=== PATIENT | male | born 1940 | race Caucasian/White ===

== ENCOUNTER 2017-09-06 10:07 | Outpatient (CLI) | payer MEDICARE ==
--- NOTE | 2017-09-06 11:35 | CT ---
HIGH RESOLUTION CHEST CT WITHOUT CONTRAST: COMPARISON: None. HISTORY: Chronic cough for years. Idiopathic pulmonary fibrosis. TECHNIQUE: A high-resolution chest CT was performed without contrast. This exam was performed in supine and pro ne positions. Thin slices were taken at large intervals. FINDINGS: No significant increased interstitial lung markings are seen. No peripheral honeycombing is present. There is mild bronchiectasis in the bilateral lower lobes. No pleural effusion or pneumothorax are seen. A small calcified granuloma is seen in the right lung base. The heart is normal in size. Calcifications are seen in the coronary arteries and the aorta. No obv ious hilar or mediastinal lymphadenopathy are appreciated. Degenerative changes are seen in the spine. The visualized subdiaphragmatic structures and chest wal l soft tissues are unremarkable. IMPRESSION: There is mild bronchiectasis without evidence of significant interstitial lung disease or idiopathic pulmonary fibrosis. POS: [facility]
== END 2017-09-06 10:08 | disposition home or self-care (01) ==
LOC: CT 10:07
PROVIDERS: ATTEND Internal Medicine Critical Care Medicine
DX: J84.112 Idiopathic pulmonary fibrosis (principal); J47.9 Bronchiectasis, uncomplicated
CPT/HCPCS: 71250

== ENCOUNTER 2017-09-17 17:46 | Inpatient (IN) | payer MEDICARE ==
[2017-09-17] MEDS ORDERED: Pantoprazole 40 MG VIAL ONE (19:11)
[2017-09-17 20:49] VITALS: BMI 18.6
[2017-09-17] MEDS ORDERED: Sodium Chloride 0.9% 1,000 ML IV SCH (21:30)
[2017-09-17] MEDS ORDERED: Ondansetron HCl/PF 4 MG/2 ML Vial IVP PRN (21:30)
[2017-09-18] MEDS ORDERED: Sodium Chloride 0.9% 100 ML ONE (00:15)
[2017-09-18] MEDS ORDERED: cefOXitin 2 GM VIAL ONE (00:15)
[2017-09-18] MEDS ORDERED: cefOXitin 2 GM in Sodium Chloride 0.9% 100 ML IVPB SCH (00:15)
--- NOTE | 2017-09-18 00:21 | HP ---
CHIEF COMPLAIN: Abdominal pain. HISTORY: Mr. Gonsalez is a 77-year-old man with abdominal pain since . He states that he bec jermaine distended and nauseated and also constipated. His last bowel movement was on Tuesday. He does not recall passing any gas since the onset of his symptoms. He has had some nausea and vomiting aft er trying to take oral contrast in [place], but his abdominal pain and nausea have both gotten bett er since the NG tube was placed. He states that currently he is not having any pain or nausea. He d enies any fevers or chills. He denies any previous similar symptoms. He is, otherwise, healthy. PAST MEDICAL HISTORY: None. PAST SURGICAL HISTORY: None except for tonsillectomy. SOCIAL HISTORY: He lives with his in [place]. He does not smoke, drink, or use illicit drugs . MEDICATIONS: He takes no outpatient medications. ALLERGIES: He has no known allergies. REVIEW OF SYSTEMS: Ten system review of systems is negative except per HPI. LABORATORY AND X-RAY FINDINGS: LFTs are unremarkable. BUN is slightly elevated at 34, alkaline phos phatase is elevated at 234. White count is slightly high at 15, hematocrit 47, platelets 443,000. H e does have a slight left shift. CT images are reviewed with our radiologist. The patient has a sma ll-bowel obstruction with a transition point at the level of a right femoral hernia. No other acute abnormalities seen. PHYSICAL EXAMINATION: VITAL SIGNS: Temperature 99, heart rate 109, respirations 16, 92% saturated on room air, blood press ure 144/80. GENERAL: Reveals a healthy-appearing older gentleman in no acute distress. He has an NG tube in [facility] with bilious drainage. NECK: Supple, without lymphadenopathy. HEART: Regular in its rate and rhythm without murmur, rubs, or gallops. LUNGS: Clear to auscultation bilaterally. ABDOMEN: Soft, nontender, slightly distended with diminished bowel sounds. EXTREMITIES: Warm and well perfused without edema. No palpable inguinal hernias, but the patient do es have a firm, tender femoral mass consistent with a femoral hernia. NEUROLOGIC: No focal deficits. PSYCHIATRIC: Alert, oriented, and appropriate. ASSESSMENT: Incarcerated obstructing right femoral hernia. I have recommended urgent repair in the operating room tonight. If the bowel looks like it is compromised, then a laparotomy may be necessar y and a bowel resection if damage to the bowel was confirmed. As the bowel appears viable, it will b e simply reduced back into the abdominal cavity. I will likely use a mesh plot to repair the hernia unless there is ischemic bowel, in which case primary repair will be done. The inherent risks of estee td were discussed with the patient. These include, but are not limited to bleeding, infection, ris ks of anesthesia, damage to nearby structures including bowel and blood vessels, recurrent hernia, an d need for further procedures. If bowel resection is performed, then anastomotic leak is also a pote ntial risk of surgery. I have placed the patient on the OR schedule and ordered antibiotics on-call to the OR. All of his questions were answered.
[2017-09-18] MEDS ORDERED: Fentanyl 100 MCG/2 ML VIAL ONE (00:25)
[2017-09-18] MEDS ORDERED: Fentanyl 250 MCG/5 ML VIAL ONE (00:49)
[2017-09-18] MEDS ORDERED: Bupivacaine/Epinephrine 0.25% 30 ML VIAL ONE (01:04)
[2017-09-18] MEDS ORDERED: HYDROmorphone 2 MG/ML VIAL SLOW IVP PRN (02:24)
[2017-09-18] MEDS ORDERED: Ondansetron HCl/PF 4 MG/2 ML Vial IVP PRN (02:24)
[2017-09-18] MEDS ORDERED: Promethazine HCl 25 MG/ML VIAL SLOW IVP PRN (02:24)
[2017-09-18] MEDS ORDERED: Promethazine HCl 25 MG/ML VIAL IM PRN (02:24)
[2017-09-18] MEDS ORDERED: Sodium Chloride 0.9% 500 ML IVPB SCH (02:30)
[2017-09-18] MEDS ORDERED: Ondansetron HCl/PF 4 MG/2 ML Vial SLOW IVP PRN (02:37)
[2017-09-18] MEDS: Sodium Chloride 0.9% 1,000 ML IV SCH ×4 (04:40→23:37)
[2017-09-18 05:27] LABS: Anion Gap 11 mmol/L (10-20); BUN (Urea Nitrogen) 34 mg/dL (8.4-25.7); Calc. Creatinine Clearance 65 mL/min (70-130); Carbon Dioxide 30 mmol/L (23-31); Chloride 100 mmol/L (98-107); Estimated GFR-MDRD Greater than 90; Glucose 123 mg/dL (83-110); Potassium 3.7 mmol/L (3.5-5.1); Sodium 137 mmol/L (136-145)
[2017-09-18] MEDS: cefOXitin 2 GM in Sodium Chloride 0.9% 100 ML IVPB SCH ×3 (05:33→17:50)
[2017-09-18] MEDS: Acetaminophen 1,000 MG in Premix Bag 1 BAG IVPB SCH ×4 (05:33→23:31)
[2017-09-18] MEDS ORDERED: Pantoprazole 40 MG VIAL IVP SCH (06:00)
[2017-09-18 06:32] LABS: Band 56 % (5-11); Hemoglobin 11.7 g/dL (14.0-18.0); Lymphocytes 14 % (21-51); MDiff Complete? YES; Mean Corpuscular Hemoglobin 33.7 pg (27.0-31.0); Mean Corpuscular Volume 99.2 fL (78.0-98.0); Mean Platelet Volume 7.8 fL (7.4-10.4); Metamyelocyte 1 % (0-0); Monocytes 3 % (0-10); Neutrophil 25 % (42-75); PLT Morphology Comment Appears Adequate; Platelet Count 271 thou/uL (130-400); RBC Distribution Width 12.9 % (11.5-14.5); Red Blood Cell (RBC) Count 3.46 mill/uL (4.70-6.10); Reflex for Review?? YES; White Blood Cell (WBC) Count 6.5 thou/uL (4.8-10.8)
[2017-09-18] MEDS: Pantoprazole 40 MG VIAL IVP SCH (08:52)
[2017-09-18] MEDS ORDERED: Glycopyrrolate 0.2 MG/ML 5 ML SYRINGE ONE (14:24)
[2017-09-18] MEDS ORDERED: PHENYLEPHRINE-NS 100 MCG/ML 10 ML SYRINGE ONE (14:24)
[2017-09-18] MEDS ORDERED: Succinylcholine Chloride 20 MG/ML 10 ml SYRINGE FS ONE (14:24)
[2017-09-18] MEDS ORDERED: PROPOFOL 200 MG/20 ML VIAL ONE (14:24)
[2017-09-18] MEDS ORDERED: Lidocaine 1% PF 5 ML VIAL ONE (14:24)
--- NOTE | 2017-09-18 15:50 | PDOC.GSPN ---
Surgery Progress Note: Subj - Subjective Narrative: Patient is feeling fine. He denies any nausea or abdominal pain. He has not passed any gas. Afebrile with normal vital signs. NG 250 bilious output. Sy catheter 350 impasse shift. White count is 6.5 and electrolytes are normal. BUN is slightly elevated at 34. His incisions are clean dry and intact. No evidence of recurrent hernia. Bowel sounds are hypoactive Assessment/plan: Doing well status post reduction and repair of incarcerated femoral hernia. Diagnostic laparoscopy revealed viable appearing small bowel loop previously incarcerated in the hernia. Await return of bowel function. Once he is passing flatus we will DC the NG tube and start him on clears. Surgery Progress Note: Obj - Vital signs Vital signs: Vital Signs - Most Recent Temp Pulse Resp BP Pulse Ox 97.5 F L 73 20 124/67 99 09/18/17 12:02 09/18/17 12:02 09/18/17 12:02 09/18/17 12:02 09/18/17 12:02 Surgery Progress Note: Results - Labs Result Diagrams: 09/18/17 04:46 09/18/17 04:46 Lab results: Laboratory Results - last 24 hr 09/18/17 09/18/17 04:46 04:46 WBC 6.5 RBC 3.46 L Hgb 11.7 L Hct 34.3 L MCV 99.2 H MCH 33.7 H MCHC 34.0 RDW 12.9 Plt Count 271 MPV 7.8 Neutrophils % (Manual) 25 L Band Neuts % (Manual) 56 H Lymphocytes % (Manual) 14 L Monocytes % (Manual) 3 Basophils % (Manual) 1 Metamyelocytes % (Man) 1 H Plt Morphology Comment Appears Adequate Sodium 137 Potassium 3.7 Chloride 100 Carbon Dioxide 30 Anion Gap 11 BUN 34 H Creatinine 0.82 Estimated GFR (MDRD) Greater than 90 Glucose 123 H Calcium 9.0
[2017-09-19] MEDS: Acetaminophen 1,000 MG in Premix Bag 1 BAG IVPB SCH (05:12)
[2017-09-19 07:11] LABS: Hemoglobin 11.7 g/dL (14.0-18.0); Mean Corpuscular HGB CONC 34.2 g/dL (32.0-36.0); Mean Corpuscular Hemoglobin 34.4 pg (27.0-31.0); Mean Platelet Volume 7.2 fL (7.4-10.4); Platelet Count 236 thou/uL (130-400); RBC Distribution Width 12.9 % (11.5-14.5); Red Blood Cell (RBC) Count 3.41 mill/uL (4.70-6.10); White Blood Cell (WBC) Count 4.8 thou/uL (4.8-10.8)
[2017-09-19 07:26] LABS: Anion Gap 14 mmol/L (10-20); BUN (Urea Nitrogen) 30 mg/dL (8.4-25.7); Calc. Creatinine Clearance 75 mL/min (70-130); Calcium 8.5 mg/dL (7.8-10.44); Carbon Dioxide 24 mmol/L (23-31); Chloride 105 mmol/L (98-107); Estimated GFR-MDRD Greater than 90; Glucose 69 mg/dL (83-110); Potassium 3.2 mmol/L (3.5-5.1); Sodium 140 mmol/L (136-145)
[2017-09-19] MEDS: Pantoprazole 40 MG VIAL IVP SCH (08:23)
[2017-09-19 08:31] LABS: Band 64 % (5-11); Eosinophils 3 % (0-10); Lymphocytes 16 % (21-51); MDiff Complete? YES; Metamyelocyte 6 % (0-0); Monocytes 4 % (0-10); Neutrophil 7 % (42-75); PLT Morphology Comment Appears Adequate; RBC Morphology Normal; Toxic Granulation SLIGHT
[2017-09-19] MEDS: Sodium Chloride 0.9% 1,000 ML IV SCH (09:25)
[2017-09-19 16:16] VITALS: BP 146/76; TEMP 97.3
--- NOTE | 2017-09-22 22:52 | PDOC.OP ---
Operative Note - Operative Note Operative Note: PROCEDURE: Repair of right femoral hernia and diagnostic laparoscopy. DATE OF PROCEDURE: 09/18/2017 SURGEON: Verna Burt M.D. PREOPERATIVE DIAGNOSES: Incarcerated right femoral hernia POSTOPERATIVE DIAGNOSIS: Incarcerated right femoral hernia HISTORY: Patient presented to the emergency room with abdominal pain, nausea and vomiting. He was found to have a high-grade small bowel obstruction with a transition point at a right femoral hernia. This was unable to be reduced at the bedside. Recommendation was made to proceed emergently to the operating room for repair of that hernia and possible bowel resection. PROCEDURE IN DETAIL: After informed consent was obtained and appropriate preoperative antibiotics administered, the patient was taken to the operating room and general anesthesia induced. He was prepped and draped in standard sterile fashion including the scrotum and thighs in the field. Local anesthesia was infused to the skin and subcutaneous tissues overlying the palpable hernia. Dissection was carried down to the hernia sac which was carefully incised. Slightly bloody fluid was encountered and suctioned out. A darkly discolored but not frankly necrotic loop of small intestine was identified. The hernia sac was excised. The neck of the hernia was very tight and this was incised superiorly to allow reduction of the bowel loop into the abdominal cavity. Due to concern of impaired viability of the small bowel loop and possible bacterial translocation the decision was made to repair the hernia without mesh. The neck of the hernia was closed with 2-0 Vicryl suture attaching the inguinal ligament to the muscular fascia and to the femoral sheath to close the defect. The subcutaneous tissues were closed with 3-0 Monocryl suture and the skin was closed with 4-0 subcuticular suture. Diagnostic laparoscopy was then performed to assess viability of the bowel. Local anesthesia was infused to the skin and subcutaneous tissues of the umbilicus. Dissection was carried down to the fascia which was incised transversely. 0 Vicryl suture was placed and the peritoneum entered under direct vision. A trocar was placed into the peritoneal cavity and carbon dioxide gas insufflated to an intra-abdominal pressure of 15. The laparoscope was advanced into the abdominal cavity and a dissecting trocar placed laterally after infusion of local anesthesia. The previously incarcerated bowel loop was readily visible. This was pink and viable in appearance. The bowel distal to the incarceration was already distending with gas in the proximal bowel was peristalsing. There was an area of the bowel just proximal to the incarcerated segment which was felt to be the portion of the bowel compressed in the neck of the hernia. This area appeared relatively narrowed compared to the dilated proximal bowel but was about the same caliber as the bowel distal to the incarcerated segment. This was not felt to represent a fixed stricture, and bowel contents were readily passing this area. By palpation it did not feel sclerotic or thickened. the abdominal cavity was irrigated easily to clear and the lateral trocar removed and hemostasis verified. Carbon dioxide gas was desufflated through the umbilical trocar which was then removed. The fascia was closed using the 0 Vicryl stay sutures with excellent result.Additional local anesthesia was infused for postoperative pain control and the incisions closed with 4-0 Monocryl subcuticular sutures. Dermabond dressings were placed and the patient was extubated and taken to recovery room in good condition. Estimated blood loss was minimal. There were no complications. Specimen is femoral hernia sac.
== END 2017-09-19 19:45 | disposition home or self-care (01) | DRG 352 ==
LOC: ERS 17:46 → SURG A 20:12
PROVIDERS: ADMIT Surgery; ATTEND Surgery
PROC: 0YQ70ZZ Repair Right Femoral Region, Open Approach (ICD-10-PCS; principal; 2017-09-18)
DX: K41.30 Unilateral femoral hernia, with obstruction, without gangrene, not specified as recurrent (principal); I10 Essential (primary) hypertension
CPT/HCPCS: 36415; 80048; 82274; 85025; 85060; 88302; 96374; A4216; C9113; J0131; J0694; J2001; J2704; J3010; J7050

== ENCOUNTER 2017-10-19 20:08 | Inpatient (IN) | payer MEDICARE ==
[2017-10-19] MEDS ORDERED: Ondansetron HCl/PF 4 MG/2 ML Vial SLOW IVP PRN (21:37)
[2017-10-19] MEDS ORDERED: Acetaminophen 1,000 MG in Premix Bag 1 BAG IVPB PRN (21:38)
[2017-10-19] MEDS ORDERED: Promethazine HCl 25 MG/ML VIAL SLOW IVP PRN (21:38)
[2017-10-19] MEDS ORDERED: Pantoprazole 40 MG VIAL IVP SCH (21:45)
[2017-10-19] MEDS: Sodium Chloride 0.9% 1,000 ML IV SCH (21:59)
[2017-10-19] MEDS ORDERED: Sodium Chloride 0.9% 1,000 ML IV SCH (23:45)
[2017-10-20] MEDS: Sodium Chloride 0.9% 1,000 ML IV SCH ×4 (02:40→17:05)
[2017-10-20] MEDS ORDERED: Sodium Chloride 0.9% 1,000 ML IV SCH (06:45)
[2017-10-20] MEDS: Pantoprazole 40 MG VIAL IVP SCH (08:23)
--- NOTE | 2017-10-20 09:37 | HP ---
DATE OF ADMISSION: 10/19/2017 HISTORY: Mr. Gonsalez is a 77-year-old man, who recently underwent repair of incarcerated right femor al hernia, which was obstructed. Laparoscopy was carried out at the time of the operation and the sunday wel loop, which had been incarcerated, appeared viable and there was no visible stricture. He initia lly did well. He had some problems with constipation, but no nausea or vomiting and no abdominal mary n. He developed fairly acute onset of abdominal pain yesterday followed quickly by nausea and vomiti ng, and it persisted today, so he came to the local emergency room where a CT scan showed a high-grad e small-bowel obstruction. An NG tube was placed and he is feeling much better. He denies any nause a and his pain is minimal. He has not had any fevers or chills and is otherwise feeling well. PAST MEDICAL HISTORY: None. PAST SURGICAL HISTORY: Tonsillectomy and repair of right femoral hernia with diagnostic laparoscopy. SOCIAL HISTORY: He does not smoke, drink, or use illicit drugs. MEDICATIONS: No outpatient medications. ALLERGIES: No allergies. REVIEW OF SYSTEMS: Ten-system review of systems is negative except per HPI. Lab work done in [facility] showed an elevated white count of 18,000 and a slightly elevated lactate. Other chemistries and LFTs were unremarkable. He had a significant increase in his hemoglobin by about 10 points and his B UN was elevated at 31, although his creatinine was normal. CT images were reviewed with radiologist, and I agree with the written report. He has a small-bowel obstruction with the terminal ileum decom pressed. It was difficult to identify the exact transition point. PHYSICAL EXAMINATION: VITAL SIGNS: Unremarkable. Blood pressure 98.2, heart rate 98, respirations 18, 96% saturated on ro om air, blood pressure 143/92. GENERAL: Reveals a thin elderly man, who appears younger than his stated age. He is not jaundiced o r icteric. He is not flushed or toxic in appearance. HEENT: Unremarkable. NECK: Supple, without lymphadenopathy or thyroid nodules. HEART: Regular in its rate and rhythm without murmurs, rubs, or gallops. LUNGS: Clear to auscultation bilaterally. ABDOMEN: Soft and nondistended. He has some minimal left lower quadrant tenderness to palpation wit hout rigidity, rebound, or guarding. Bowel sounds are diminished. EXTREMITIES: Warm and well perfused without edema. NEUROLOGIC: No focal deficits. PSYCHIATRIC: Alert, oriented, and appropriate. No bulge or tenderness in the groin or femoral or in guinal areas. ASSESSMENT: Small-bowel obstruction. This could be due to adhesions or to a delayed stricture from his small-bowel incarceration. He is comfortable with his NG tube, so we are going to try a brief pe riod of conservative management with NG tube, bowel decompression, and n.p.o. If he improves signifi cantly with this, we will get a contrast study. If there is not significant improvement, then he britt l likely proceed to the operating room for exploration and possible bowel resection. He and his are in agreement with the plan. All their questions were answered. He appears to be significantly dehydrated, given the increase in his H and H. So, I ordered a bolus of normal saline and we will fo llow his urine output.
--- NOTE | 2017-10-20 11:26 | RAD ---
ABDOMEN TWO VIEWS: History: Small bowel obstruction. Comparison: None. FINDINGS: There is layering opacities in the left lung base. Enteric tube is in place with sideport at the karen jennyfer fundus. There is S-shaped scoliosis, severe. Multiple air fluid levels. No definite free air although evaluation is limited. IMPRESSION: 1. Enteric tube position in good place. 2. Likely small bowel obstruction. POS: [facility]
[2017-10-20] MEDS ORDERED: PROPOFOL 200 MG/20 ML VIAL ONE (13:59)
[2017-10-20] MEDS ORDERED: Ondansetron HCl/PF 4 MG/2 ML Vial ONE (13:59)
[2017-10-20] MEDS ORDERED: PHENYLEPHRINE-NS 100 MCG/ML 10 ML SYRINGE ONE (13:59)
[2017-10-20] MEDS ORDERED: Lidocaine 1% PF 5 ML VIAL ONE (13:59)
[2017-10-20] MEDS ORDERED: Succinylcholine Chloride 20 MG/ML 10 ml SYRINGE FS ONE (13:59)
--- NOTE | 2017-10-20 15:30 | PDOC.GSPN ---
Surgery Progress Note: Subj - Subjective Narrative: Patient is not nauseated but his abdominal pain is worse. No flatus or bowel movements. He has had over a liter of bilious NG drainage. Lower abdominal tenderness is stable. KUB showed continued signs of small bowel obstruction. Assessment/plan: Persistent small bowel structure with worsening pain. After discussion with the patient's we decided to proceed to the operating room for laparoscopy and possible lysis of adhesions and possible small bowel resection. Risks of the surgery were discussed with the patient and his . These risks include but are not limited to bleeding, infection, risks of anesthesia, damage to nearby structures including bowel and blood vessels, anastomotic leak, and need for open surgery or other procedures. They understand and accept these risks and wish to proceed. Surgery Progress Note: Obj - Vital signs Vital signs: Vital Signs - Most Recent Temp Pulse Resp BP Pulse Ox 97.6 F 91 18 164/82 H 95 10/20/17 12:45 10/20/17 12:45 10/20/17 12:45 10/20/17 13:00 10/20/17 12:45
[2017-10-20 16:29] LABS: Anion Gap 10 mmol/L (10-20); BUN (Urea Nitrogen) 29 mg/dL (8.4-25.7); Calc. Creatinine Clearance 73 mL/min (70-130); Calcium 8.7 mg/dL (7.8-10.44); Carbon Dioxide 26 mmol/L (23-31); Chloride 108 mmol/L (98-107); Estimated GFR-MDRD Greater than 90; Glucose 105 mg/dL (83-110); Potassium 3.5 mmol/L (3.5-5.1); Sodium 140 mmol/L (136-145)
[2017-10-20 16:50] LABS: Band 27 % (5-11); Hemoglobin 13.1 g/dL (14.0-18.0); Lymphocytes 49 % (21-51); MDiff Complete? YES; Mean Corpuscular HGB CONC 33.2 g/dL (32.0-36.0); Mean Corpuscular Hemoglobin 33.3 pg (27.0-31.0); Mean Platelet Volume 7.5 fL (7.4-10.4); Metamyelocyte 1 % (0-0); Monocytes 6 % (0-10); Neutrophil 17 % (42-75); PLT Morphology Comment Appears Adequate; Platelet Count 244 thou/uL (130-400); RBC Distribution Width 13.1 % (11.5-14.5); Red Blood Cell (RBC) Count 3.93 mill/uL (4.70-6.10); White Blood Cell (WBC) Count 3.7 thou/uL (4.8-10.8)
[2017-10-20] MEDS ORDERED: Fentanyl 100 MCG/2 ML VIAL ONE ×2 (18:55→20:40)
[2017-10-20] MEDS ORDERED: Bupivacaine HCl 0.5%/Epinephrine 1:200,000/PF 30 ml Vial ONE ×2 (19:00→20:34)
[2017-10-20] MEDS ORDERED: Sodium Chloride 0.9% 100 ML ONE (20:47)
[2017-10-20] MEDS ORDERED: cefOXitin 2 GM VIAL ONE (20:47)
[2017-10-20] MEDS ORDERED: Bupivacaine/Epinephrine 0.25% 30 ML VIAL ONE (21:28)
[2017-10-20] MEDS ORDERED: Ondansetron HCl/PF 4 MG/2 ML Vial IVP PRN ×2 (22:37→23:59)
[2017-10-20] MEDS ORDERED: Promethazine HCl 25 MG/ML VIAL IM PRN ×2 (22:37→23:59)
[2017-10-20] MEDS ORDERED: Promethazine HCl 25 MG/ML VIAL SLOW IVP PRN (22:37)
[2017-10-20 23:18] LABS: Bilirubin Negative (Negative); Blood, Urine Small (Negative); Clarity CLEAR (Clear); Glucose, Urine (Dipstick) Negative (Negative); Leukocyte Negative (Negative); Nitrite Negative (Negative); Protein, Urine (Dipstick) Negative (Neg-Trace); Specific Gravity, Urine 1.024 (1.002-1.036); Urobilinogen 0.2 mg/dL (0.2-1.0)
[2017-10-20 23:20] LABS: Bacteria/HPF None Seen HPF (None Seen); Hyaline Casts/LPF 4-6 HYALINE CAST LPF (0-3 Hyaline); Pathc Cast-AUWi Flag 0.58 (0-2.49); RBC/HPF 21-50 HPF (0-3); Squamous Epithelial 0-3 HPF (0-3); WBC/HPF 0-3 HPF (0-3)
[2017-10-20] MEDS ORDERED: Communication Order-Pharmacy FS SCH (23:45)
[2017-10-20] MEDS ORDERED: diphenhydrAMINE 25 MG CAP PO PRN (23:59)
[2017-10-20] MEDS ORDERED: diphenhydrAMINE 50 MG/ML VIAL IVP PRN (23:59)
[2017-10-20] MEDS ORDERED: Naloxone HCl 0.4 mg/ml Vial IV PRN (23:59)
[2017-10-20] MEDS ORDERED: diphenhydrAMINE 50 MG/ML VIAL IM PRN (23:59)
[2017-10-20] MEDS ORDERED: Zolpidem Tartrate 5 MG TAB PO PRN (23:59)
[2017-10-20] MEDS ORDERED: fentaNYL Citrate/PF 2,000 MCG in Sodium Chloride 0.9% 60 ML IV PRN (23:59)
[2017-10-21] MEDS: Sodium Chloride 0.9% 1,000 ML IV SCH ×2 (01:31→16:49)
[2017-10-21] MEDS: cefOXitin 2 GM in Sodium Chloride 0.9% 100 ML IVPB SCH ×3 (05:33→21:20)
[2017-10-21 05:40] LABS: Anion Gap 11 mmol/L (10-20); BUN (Urea Nitrogen) 22 mg/dL (8.4-25.7); Calc. Creatinine Clearance 69 mL/min (70-130); Carbon Dioxide 24 mmol/L (23-31); Chloride 109 mmol/L (98-107); Estimated GFR-MDRD Greater than 90; Glucose 127 mg/dL (83-110); Potassium 3.3 mmol/L (3.5-5.1); Sodium 141 mmol/L (136-145)
[2017-10-21 06:07] LABS: Band 44 % (5-11); Dohle Bodies SLIGHT; Hemoglobin 12.8 g/dL (14.0-18.0); Lymphocytes 29 % (21-51); MDiff Complete? YES; Mean Corpuscular HGB CONC 33.5 g/dL (32.0-36.0); Mean Corpuscular Hemoglobin 33.6 pg (27.0-31.0); Metamyelocyte 8 % (0-0); Monocytes 6 % (0-10); Neutrophil 6 % (42-75); PLT Morphology Comment Appears Adequate; Platelet Count 162 thou/uL (130-400); Reactive Lymphocytes 7 % (0-10); Red Blood Cell (RBC) Count 3.81 mill/uL (4.70-6.10); Toxic Granulation SLIGHT; White Blood Cell (WBC) Count 4.8 thou/uL (4.8-10.8)
[2017-10-21] MEDS ORDERED: Acetaminophen 1,000 MG in Premix Bag 1 BAG IVPB SCH (06:30)
[2017-10-21] MEDS: Pantoprazole 40 MG VIAL IVP SCH (08:20)
[2017-10-21] MEDS ORDERED: Potassium Chloride 20 MEQ in Premix Bag 1 BAG IVPB SCH (09:30)
[2017-10-21 09:57] LABS: Magnesium 1.3 mg/dL (1.6-2.6); Phosphorus 2.7 mg/dL (2.3-4.7)
[2017-10-21] MEDS: D5 1/2 NS w/20 mEq KCL 1,000 ML IV SCH ×3 (10:23→22:23)
[2017-10-21] MEDS: Acetaminophen 1,000 MG in Premix Bag 1 BAG IVPB SCH ×3 (11:43→23:32)
--- NOTE | 2017-10-21 23:09 | PDOC.GSPN ---
Surgery Progress Note: Subj - Subjective Narrative: Patient feels better compared with preoperative. He does have some pain at the incision. No flatus but no nausea. His heart rate blood pressure and temperature went up earlier but came down after incentive spirometry and Ofirmev. Abdomen is soft and nondistended. Bowel sounds are diminished. Incisions are clean and dry. NG output is still bilious but sap gatherer in color. Assessment/plan: Status post small bowel obstruction from adhesions. Short segment small bowel resection was performed after lysis of adhesions due to concern for stricture at the distal adhesion. He is recovering well. We are awaiting return of bowel function. His potassium is low and has been replaced. He has been instructed to ambulate in the halls with assistance. Surgery Progress Note: Obj - Vital signs Vital signs: Vital Signs - Most Recent Temp Pulse Resp BP Pulse Ox 98 F 65 16 130/76 96 10/21/17 20:00 10/21/17 20:00 10/21/17 20:00 10/21/17 20:00 10/21/17 20:00 Surgery Progress Note: Results - Labs Result Diagrams: 10/21/17 04:41 10/21/17 04:41
[2017-10-22] MEDS: D5 1/2 NS w/20 mEq KCL 1,000 ML IV SCH ×3 (03:26→22:02)
[2017-10-22 05:25] LABS: Anion Gap 9 mmol/L (10-20); BUN (Urea Nitrogen) 18 mg/dL (8.4-25.7); Calc. Creatinine Clearance 81 mL/min (70-130); Carbon Dioxide 25 mmol/L (23-31); Chloride 108 mmol/L (98-107); Estimated GFR-MDRD Greater than 90; Glucose 105 mg/dL (83-110); Magnesium 1.6 mg/dL (1.6-2.6); Phosphorus 1.7 mg/dL (2.3-4.7); Potassium 3.3 mmol/L (3.5-5.1); Sodium 139 mmol/L (136-145)
[2017-10-22] MEDS: Acetaminophen 1,000 MG in Premix Bag 1 BAG IVPB SCH ×2 (05:53→12:30)
[2017-10-22 06:45] LABS: Band 55 % (5-11); Hemoglobin 11.9 g/dL (14.0-18.0); Lymphocytes 28 % (21-51); MDiff Complete? YES; Mean Corpuscular HGB CONC 33.7 g/dL (32.0-36.0); Mean Corpuscular Hemoglobin 34.1 pg (27.0-31.0); Mean Platelet Volume 7.7 fL (7.4-10.4); Monocytes 4 % (0-10); Neutrophil 13 % (42-75); Platelet Count 145 thou/uL (130-400); RBC Distribution Width 12.9 % (11.5-14.5); Red Blood Cell (RBC) Count 3.48 mill/uL (4.70-6.10)
[2017-10-22] MEDS ORDERED: Potassium Chloride 20 MEQ in Premix Bag 1 BAG IVPB SCH (08:00)
[2017-10-22] MEDS: Pantoprazole 40 MG VIAL IVP SCH (11:13)
--- NOTE | 2017-10-22 16:06 | PDOC.GSPN ---
Surgery Progress Note: Subj - Subjective Narrative: Patient feels well this morning. No flatus but no nausea. Abdomen is soft. Bowel sounds are present though still somewhat diminished. Incisions are clean and intact. He has appropriate sangeetha-incisional tenderness. Potassium and phosphorus were low and were replaced IV. Bandemia persists but he is afebrile with a normal heart rate and states that he feels better than yesterday. Assessment/plan: Status post small bowel resection for obstruction due to adhesions. Still awaiting return of bowel function but otherwise stable. Continue current management. Surgery Progress Note: Obj - Vital signs Vital signs: Vital Signs - Most Recent Temp Pulse Resp BP Pulse Ox 97.9 F 74 16 170/77 H 95 10/22/17 11:42 10/22/17 11:42 10/22/17 11:42 10/22/17 11:42 10/22/17 11:42 Surgery Progress Note: Results - Labs Result Diagrams: 10/22/17 04:14 10/22/17 04:14 Lab results: Laboratory Results - last 24 hr 10/22/17 10/22/17 04:14 04:14 WBC 7.0 RBC 3.48 L Hgb 11.9 L Hct 35.2 L MCV 101.0 H MCH 34.1 H MCHC 33.7 RDW 12.9 Plt Count 145 MPV 7.7 Neutrophils % (Manual) 13 L Band Neuts % (Manual) 55 H Lymphocytes % (Manual) 28 Monocytes % (Manual) 4 Sodium 139 Potassium 3.3 L Chloride 108 H Carbon Dioxide 25 Anion Gap 9 L BUN 18 Creatinine 0.66 Estimated GFR (MDRD) Greater than 90 Glucose 105 Calcium 8.0 Phosphorus 1.7 L Magnesium 1.6
[2017-10-23] MEDS ORDERED: hydrALAZINE 20 MG/ML VIAL SLOW IVP PRN (01:02)
[2017-10-23] MEDS: D5 1/2 NS w/20 mEq KCL 1,000 ML IV SCH ×2 (04:33→08:32)
[2017-10-23 05:48] LABS: Anion Gap 11 mmol/L (10-20); BUN (Urea Nitrogen) 9 mg/dL (8.4-25.7); Calc. Creatinine Clearance 102 mL/min (70-130); Calcium 7.9 mg/dL (7.8-10.44); Carbon Dioxide 23 mmol/L (23-31); Chloride 103 mmol/L (98-107); Estimated GFR-MDRD Greater than 90; Glucose 111 mg/dL (83-110); Magnesium 1.1 mg/dL (1.6-2.6); Potassium 3.3 mmol/L (3.5-5.1); Sodium 134 mmol/L (136-145)
[2017-10-23 05:56] LABS: Phosphorus 1.7 mg/dL (2.3-4.7)
[2017-10-23 06:52] LABS: Band 25 % (5-11); Hemoglobin 12.3 g/dL (14.0-18.0); Lymphocytes 23 % (21-51); MDiff Complete? YES; Mean Corpuscular HGB CONC 33.3 g/dL (32.0-36.0); Mean Corpuscular Volume 98.9 fL (78.0-98.0); Mean Platelet Volume 7.8 fL (7.4-10.4); Monocytes 5 % (0-10); Neutrophil 44 % (42-75); Platelet Count 171 thou/uL (130-400); RBC Distribution Width 12.7 % (11.5-14.5); Reactive Lymphocytes 3 % (0-10); Red Blood Cell (RBC) Count 3.72 mill/uL (4.70-6.10); White Blood Cell (WBC) Count 9.3 thou/uL (4.8-10.8)
[2017-10-23] MEDS: Pantoprazole 40 MG VIAL IVP SCH (08:30)
[2017-10-23] MEDS ORDERED: Potassium Phosphate 12 MMOL in Sodium Chloride 0.9% 100 ML IVPB SCH (08:30)
[2017-10-23] MEDS ORDERED: Magnesium 2 GM/NS 0.9% 100 ML 2 GM in Premix Bag 1 BAG IVPB SCH (12:15)
[2017-10-23] MEDS ORDERED: Potassium Chloride 20 MEQ in Premix Bag 1 BAG IVPB SCH (12:30)
--- NOTE | 2017-10-23 16:19 | PDOC.GSPN ---
Surgery Progress Note: Subj - Subjective Narrative: Patient is feeling fine. He is still having plenty of flatus but hasn't had a bowel movement yet. He has not had any nausea on the clear liquids and plastic try. Tender. His potassium was slightly low at 3.3 and his phosphorus and magnesium are also low at 1.7 1.1. These have been replaced. His urine output is good. His blood pressure continues to intermittently run a little high. Surgery Progress Note: Obj - Vital signs Vital signs: Vital Signs - Most Recent Temp Pulse Resp BP Pulse Ox 98.5 F 107 H 16 155/92 H 96 10/23/17 15:25 10/23/17 15:25 10/23/17 15:25 10/23/17 15:25 10/23/17 15:25 Surgery Progress Note: Results - Labs Result Diagrams: 10/23/17 04:57 10/23/17 04:57 Lab results: Laboratory Results - last 24 hr 10/23/17 10/23/17 04:57 04:57 WBC 9.3 RBC 3.72 L Hgb 12.3 L Hct 36.8 L MCV 98.9 H MCH 33.0 H MCHC 33.3 RDW 12.7 Plt Count 171 MPV 7.8 Neutrophils % (Manual) 44 Band Neuts % (Manual) 25 H Lymphocytes % (Manual) 23 Reactive Lymphs % 3 Monocytes % (Manual) 5 Sodium 134 L Potassium 3.3 L Chloride 103 Carbon Dioxide 23 Anion Gap 11 BUN 9 Creatinine 0.56 L Estimated GFR (MDRD) Greater than 90 Glucose 111 H Calcium 7.9 Phosphorus 1.7 L Magnesium 1.1 L
[2017-10-24] MEDS: Pantoprazole 40 MG VIAL IVP SCH (08:22)
[2017-10-24 11:57] VITALS: BP 152/89; TEMP 98.2
[2017-10-24] MEDS ORDERED: Acetaminophen 325 MG TAB PO PRN (13:18)
[2017-10-24 14:04] VITALS: BMI 19.8
--- NOTE | 2017-10-31 19:58 | PDOC.OP ---
Operative Note - Operative Note Operative Note: PROCEDURE: Laparoscopic hand-assisted small bowel resection DATE OF PROCEDURE: 10/20/2017 SURGEON: Verna Burt M.D. PREOPERATIVE DIAGNOSES: Small bowel obstruction POSTOPERATIVE DIAGNOSIS: Small bowel obstruction due to adhesions with resulting stricture HISTORY: Patient is status post repair of incarcerated obstructing right femoral hernia. Diagnostic laparoscopy was performed and the patient was found to have an inflamed but viable appearing loop of small bowel with no visible stricture. He initially did well but then presented with acute abdominal pain nausea and vomiting and CT evidence of bowel obstruction. A brief period of rest and NG decompression was carried out but his symptoms did not improve so the recommendation was made to proceed to the operating room. FINDINGS: Extensive adhesions involving the previously incarcerated loop of small intestine to the anterior abdominal wall distant from the laparoscopy and hernia repair sites. The adhesions were creating a closed loop type obstruction and early stricture formation so approximately 1 foot of small intestine was removed. PROCEDURE IN DETAIL: After informed consent was obtained and appropriate preoperative antibiotics administered the patient was taken to the operating on he was placed in supine position and general endotracheal anesthesia was administered. A Sy catheter was placed to decompress the bladder and the NG tube placed to suction. Local anesthesia was infused at the umbilical level and dissection carried down to the fascia which was incised under direct vision. The peritoneum was elevated and incised and the peritoneal cavity entered. There were no adhesions at the level of the umbilicus. A 5 mm trocar was placed and carbon dioxide gas insufflated. The abdominal cavity was carefully examined and adhesions noted in the left lower quadrant. Dissecting trochars were placed in the lateral abdomen and the adhesions to carefully taken down through the avascular plane, excising a small amount of peritoneum in a few places where the bowel was densely adherent. There were dense interloop adhesions in this area and even after the adhesions to the anterior abdominal wall were taken down the bowel appeared dilated and somewhat dusky. The interloop adhesions were very dense and a plane could not be easily identified laparoscopically so the decision was made to place a hand port. The umbilical incision was extended superiorly and inferiorly and a GelPort placed. The interloop adhesions were taken down sharply through the avascular plane and the bowel straightened out. There appeared to be incipient stricture formation at the proximal and distal ends of the involved bowel. The adhesions appeared to be involving the segment of bowel which had been previously incarcerated in the hernia. The decision was made to resect the involved bowel. The bowel was externalized through the hand port and towels placed circumferentially. The healthy proximal and distal bowel was approximated along the antimesenteric edge and enterotomies created. A CLINT stapler was placed into the and a long stapled anastomosis created along the antimesenteric edges. The enterotomies were then closed with clamps and the staple fired transversely excluding the enterotomies and the dilated loop of bowel. Mesentery was divided with LigaSure and the mesenteric defect closed with suture. The transverse staple line was inverted with Lembert sutures and the angle of sorrow was reinforced with a Lembert suture. The anastomosis was palpated and was widely patent. The bowel was returned to the abdomen and the entire length of the small intestine run from the ligament of Treitz to the ileocecal valve and no other adhesions or abnormalities identified. The abdominal cavity was copiously irrigated to clear and the bowel returned to its normal anatomic position taking care not to twist the mesentery. The omentum was drawn down over the intestine and the laparoscopic ports removed and hemostasis verified at these sites. The GelPort was then removed and Seprafilm placed anterior to the omentum. The fascia was closed under direct vision with a running PDS suture. The subcutaneous tissues were irrigated and reapproximated with 3-0 suture. The skin was closed with running 4-0 subcuticular Monocryl suture and Dermabond dressings were placed. Patient was extubated and taken to the recovery room in good condition. Estimated blood loss was minimal. There were no complications. Specimen is ileum.
== END 2017-10-24 16:25 | disposition home or self-care (01) | DRG 331 ==
LOC: SURG B 20:08
PROVIDERS: ADMIT Surgery; ATTEND Surgery
PROC: 0DB84ZZ Excision of Small Intestine, Percutaneous Endoscopic Approach (ICD-10-PCS; principal; 2017-10-20)
PROC: 0DN80ZZ Release Small Intestine, Open Approach (ICD-10-PCS; 2017-10-20)
DX: K56.50 Intestinal adhesions [bands], unspecified as to partial versus complete obstruction (principal); E86.0 Dehydration; L89.152 Pressure ulcer of sacral region, stage 2
CPT/HCPCS: 36415; 74019; 80048; 81001; 83735; 84100; 85025; 88307; A4216; C9113; J0131; J0360; J0670; J0694; J1610; J2001; J2405; J2704; J3010; J3475; J3480; J7050

== ENCOUNTER 2017-11-09 17:07 | Outpatient (CLI) | payer MEDICARE ==
[~2017-11-09 17:07] MED LIST: ISOVUE-370 76%-LOCM 1 ML ONE; Iopamidol 370 76% 50 ML VIAL FS ONE
[2017-11-09 17:29] LABS: Estimated GFR-MDRD - POC Greater than 90
--- NOTE | 2017-11-09 20:41 | CT ---
HISTORY: Abdominal pain, vomiting. CONTRAST ENHANCED CT IMAGES OF THE ABDOMEN AND PELVIS 11/09/[address] images of the abdomen and pelvis is obtained after administration of IV and oral contrast. CT images demonstrate extensive coronary artery calcifications. The lung bases are unremarkable. No evidence of free intraperitoneal air seen. The liver and spleen are unremarkable. The pancreas is unremarkable. Adrenal glands and kidneys unremarkable. There is multisegmental areas of moderate degree of small bowel dilatation. Some postsurgical changes seen in the left mid small bowel seen on axial images #46 and coronal image #65. A large amount of fluid is seen in the ascending colon. Areas of small bowel dilatation concerning for possible bowel obstruction. Varying segments of small bowel are dilated on the CT images. IMPRESSION: Areas of small bowel dilatation without evidence of free intraperitoneal air. Good flow is seen in th e SMA and celiac arteries. Atherosclerotic calcifications seen in the abdominal aorta. POS: [facility]
== END 2017-11-09 17:08 | disposition home or self-care (01) ==
LOC: CT 17:07
PROVIDERS: ATTEND Surgery
DX: R10.9 Unspecified abdominal pain (principal); R11.10 Vomiting, unspecified; K56.699 Other intestinal obstruction unspecified as to partial versus complete obstruction; I70.0 Atherosclerosis of aorta
CPT/HCPCS: 74177; 82565

== ENCOUNTER 2017-11-09 20:27 | Inpatient (IN) | payer MEDICARE ==
[2017-11-09] MEDS: D5 1/2 NS w/20 mEq KCL 1,000 ML IV SCH (21:18)
[2017-11-09 21:57] VITALS: BMI 18.1
[2017-11-10] MEDS: D5 1/2 NS w/20 mEq KCL 1,000 ML IV SCH ×3 (05:15→23:37)
[2017-11-10 05:48] LABS: ALT (SGPT) 8 U/L (8-55); AST (SGOT) 17 U/L (5-34); Albumin 3.4 g/dL (3.4-4.8); Alkaline Phosphatase 90 U/L (40-150); Anion Gap 11 mmol/L (10-20); BUN (Urea Nitrogen) 16 mg/dL (8.4-25.7); Bilirubin, Total 0.8 mg/dL (0.2-1.2); Calc. Creatinine Clearance 78 mL/min (70-130); Calcium 9.1 mg/dL (7.8-10.44); Carbon Dioxide 28 mmol/L (23-31); Chloride 101 mmol/L (98-107); Estimated GFR-MDRD Greater than 90; Globulin 3.8 g/dL (2.4-3.5); Glucose 96 mg/dL (83-110); Magnesium 1.6 mg/dL (1.6-2.6); Phosphorus 3.1 mg/dL (2.3-4.7); Potassium 3.7 mmol/L (3.5-5.1); Protein, Total 7.2 g/dL (5.8-8.1); Sodium 136 mmol/L (136-145)
[2017-11-10 05:55] LABS: #Eosinphils 0.2 thou/uL (0.0-0.7); #Lymphocytes 2.9 thou/uL (1.20-3.40); #Monocytes 0.8 thou/uL (0.11-0.59); #Neutrophils 3.1 thou/uL (1.40-6.50); %Basophils 0.5 % (0.0-1.0); %Eosinophils 2.6 % (0.0-10.0); %Monocytes 11.5 % (0.0-10.0); %Neutrophils 44.5 % (42.0-75.0); Hemoglobin 12.9 g/dL (14.0-18.0); Mean Corpuscular Hemoglobin 31.8 pg (27.0-31.0); Mean Corpuscular Volume 99.3 fL (78.0-98.0); Mean Platelet Volume 7.9 fL (7.4-10.4); Platelet Count 335 thou/uL (130-400); RBC Distribution Width 13.1 % (11.5-14.5); Red Blood Cell (RBC) Count 4.07 mill/uL (4.70-6.10); White Blood Cell (WBC) Count 7.1 thou/uL (4.8-10.8)
[2017-11-10] MEDS: Pantoprazole 40 MG VIAL IVP SCH (07:57)
--- NOTE | 2017-11-10 12:00 | RAD ---
ABDOMEN 2 VIEWS: Date: 11/10/17 HISTORY: 77-year-old male with history of follow-up small bowel obstruction. COMPARISON: 11/09/17. FINDINGS: Persistent abnormally dilated loops of small bowel with air and fluid levels. Contrast media given at the time of the CT scan has progressed through the small bowel, entering the colon. No evidence for free intraperitoneal air. IMPRESSION: Partial small bowel obstruction with air and fluid levels within abnormally dilated small bowel. Oral contrast given at the time of the prior CT scan has completely passed through the small bowel and is noted within the distal colon. No other acute process. POS: [facility]
[2017-11-11] MEDS: Pantoprazole 40 MG VIAL IVP SCH (08:10)
[2017-11-11] MEDS: D5 1/2 NS w/20 mEq KCL 1,000 ML IV SCH ×2 (08:10→15:08)
[2017-11-11] MEDS ORDERED: MD-Gastroview 120 ML BOT ONE (12:13)
--- NOTE | 2017-11-11 15:16 | RAD ---
GASTROGRAFIN SMALL BOWEL FOLLOW-THROUGH: HISTORY: Abdominal pain. Possible obstruction. FINDINGS: Nondilated small bowel loops are present throughout the abdomen. Contrast reaches the right colon at 90 minutes. IMPRESSION: No evidence of significant bowel obstruction. POS: [facility]
[2017-11-12] MEDS: D5 1/2 NS w/20 mEq KCL 1,000 ML IV SCH ×2 (04:10→08:17)
[2017-11-12 08:02] VITALS: BP 157/96; TEMP 98.2
[2017-11-12] MEDS: Pantoprazole 40 MG VIAL IVP SCH (08:17)
== END 2017-11-12 11:36 | disposition home or self-care (01) | DRG 392 ==
LOC: SURG A 20:27
PROVIDERS: ADMIT Surgery; ATTEND Surgery
DX: A08.4 Viral intestinal infection, unspecified (principal); K56.7 Ileus, unspecified
CPT/HCPCS: 36415; 74019; 74177; 74250; 80053; 82565; 83735; 84100; 84443; 85025; A4216; C9113

== ENCOUNTER 2018-09-18 09:18 | Outpatient (CLI) | payer MEDICARE ==
--- NOTE | 2018-09-18 10:09 | CT ---
EXAM: CT of the chest without contrast HISTORY: Idiopathic pulmonary fibrosis COMPARISON: 01/27/2017 TECHNIQUE: Multiple contiguous axial images were obtained in a CT the chest without contrast. Coronal reformats were performed. FINDINGS: HEART: Normal in size without focal cardiac abnormality MEDIASTINUM: No hilar or mediastinal lymphadenopathy. Atherosclerotic calcifications are seen in the aorta and coronary arteries. Evaluation of the mediastinum is limited without IV contrast. LUNGS: No focal infiltrates, nodules, or masses. Mild stable peripheral increased interstitial markin gs are seen in the lung bases. No bronchiectasis is seen. No honeycombing is seen. PLEURAL SPACE: No pneumothorax or pleural effusion. CHEST WALL SOFT TISSUES: Unremarkable OSSEOUS STRUCTURES: Degenerative changes in the spine. VISUALIZED SUBDIAPHRAGMATIC STRUCTURES: Unremarkable IMPRESSION: No evidence of acute intrathoracic abnormality.
== END 2018-09-18 09:19 | disposition home or self-care (01) ==
LOC: BICCT 09:18
PROVIDERS: ATTEND Internal Medicine Critical Care Medicine
DX: J84.112 Idiopathic pulmonary fibrosis (principal)
CPT/HCPCS: 71250

== ENCOUNTER 2021-11-17 10:15 | Outpatient (CLI) | payer OTHER | END 2021-11-17 10:16 | disposition home or self-care (01) | LOC: PET 10:15 | PROVIDERS: ATTEND Internal Medicine Hematology & Oncology | DX: C90.00 Multiple myeloma not having achieved remission (principal) | CPT/HCPCS: 78816; A9552 ==